=== PATIENT | female | born 1970 | race Caucasian/White ===

== ENCOUNTER 2019-07-16 14:36 | Outpatient (RCR) | payer OTHER, SELFPAY | END 2019-07-28 23:00 | disposition home or self-care (01) | LOC: SPT 14:36 | PROVIDERS: Family Provider Student in an Organized Health Care Education/Training Program; Visit Provider Orthopaedic Surgery | DX: M25.522 Pain in left elbow (principal) | CPT/HCPCS: 97545 ==

== ENCOUNTER 2019-07-18 13:07 | Outpatient (RCR) | payer OTHER, SELFPAY | END 2019-07-18 23:00 | disposition home or self-care (01) | LOC: SPT 13:07 | PROVIDERS: Family Provider Student in an Organized Health Care Education/Training Program; PCP Family Medicine; Visit Provider Orthopaedic Surgery | DX: M25.522 Pain in left elbow (principal) ==

== ENCOUNTER 2025-03-11 07:50 | Day surgery (SDC) | payer BC, MEDICAID, SELFPAY ==
[2025-03-11] VITALS (15 sets, daily range): BP systolic 104–159; BP diastolic 65–91; PULSE 75–93; RESP 12–18; TEMP 36.1–36.3; O2SAT 92–99; BMI 24.5
--- NOTE | 2025-03-11 08:12 | ANES.PREANE2 ---
Pre-Anesthetic Assessment Height/Weight: Height 5 ft 1 in Preop Diagnosis: Rotator cuff tear Operation Date: 03/11/25 09:30 Proposed Procedures p Rotator Cuff Repair - Open(Left) - Zach Delaney MD Was Beta Loretta taken within 24 hours: N/A Was Clonidine taken within 24 hours: N/A Social Tobacco and No alcohol Exam alert, oriented x 3, clear to auscultation bilaterally and regular rate & rhythm Airway Submandibular: within normal limits Cervical ROM: within normal limits Mallampati: Class III Comments: Comments: Edentulous Anesthetic Plan ASA status: 2 Anesthesia: General Other: No prior issues with anesthesia NPO since yesterday evening History of hypertension on diltiazem Patient brought in labs from outside facility that were recently performed Electrolytes stable, hemoglobin 13 EKG sinus rhythm Plan for GETA with preop nerve block Medications/Allergies Home Medications ?Medication ?Instructions ?Recorded ?Confirmed ?Last Taken ?Type baclofen 10 mg tablet 10 mg PO TID 08/28/19 03/10/25 03/10/25 History clonazepam 0.5 mg tablet 0.5 mg PO DAILY 08/28/19 03/10/25 03/10/25 History diltiazem HCl 120 mg 120 mg PO BEDTIME 08/28/19 03/11/25 03/10/25 History capsule,extended release 12 hr bupropion HCl 150 mg tablet,12 hr 150 mg PO BID 08/03/20 03/10/25 03/10/25 History sustained-release (Wellbutrin SR) estradiol 1 mg tablet 1 mg PO DAILY 08/03/20 03/10/25 03/10/25 History medroxyprogesterone 2.5 mg tablet 2.5 mg PO DAILY 08/03/20 03/10/25 03/10/25 History meloxicam 15 mg tablet 15 mg PO DAILY 08/03/20 03/10/25 03/10/25 History hydrocodone 7.5 mg-acetaminophen 1 tab PO BID PRN Pain 03/11/25 03/11/25 03/10/25 History 325 mg tablet Allergies Allergy/AdvReac Type Severity Reaction Status Date / Time gabapentin AdvReac Intermediate ADR-Nightma Verified 03/10/25 16:08 [facility] Anesthesia Social History Smoking and tobacco/nicotine status: current every day tobacco/nicotine user Alcohol intake: never Substance/Drug Use: never
--- NOTE | 2025-03-11 08:44 | W.PM.OPSUD ---
Surgery/Procedure H&P Update DATE OF PROCEDURE: March 11, 2025 DATE H&P PERFORMED: 02/09/25 CHANGES TO PREVIOUS DOCUMENTATION: No interval change in health status since the original H&P March 11, 2025 PREOP DIAGNOSIS: Rotator cuff tear PRIMARY INDICATION FOR PROCEDURE: Internal derangement left shoulder PLANNED PROCEDURE: Operation Date: 03/11/25 09:30 Proposed Procedures p Rotator Cuff Repair - Open(Left) - Zach Delaney MD
--- NOTE | 2025-03-11 08:56 | ANES.PROC ---
Anesthesia Procedures Procedure/Date: 03/11/25 Left interscalene nerve block for postoperative pain control Nerve Block ^: Nerve Block 1: Main Anesthesia: other (100 mcg of fentanyl and 2 mg Versed) Time Out Performed: Yes Consent: requested by attending/covering physician and from patient Laterality: Left Nerve block location: interscalene Anesthesia monitors applied: pulse oximetry, EKG, BP cuff and oxygen Nerve block position: supine Anesthetic Used: ropivicaine 0.5% Amount of anesthesia used (mL): 30 Ultrasound used to: recognize landmarks Nerve Stimulator Used?: Yes Interscalene/Femoral BLK: other needle (pjunk 4inch) Injection: neg aspiration of heme Patient Tolerated Procedure: well Complications: none Additional Comments: decadron 4mg added to block
[2025-03-11] MEDS: ceFAZolin 2,000 mg SDV 2000 MG IVP (09:10)
--- NOTE | 2025-03-11 10:21 | PM.OP ---
Operative Report Date of procedure: March 11, 2025 Surgeon: Zach Delaney MD Procedure: Preoperative diagnosis: Internal derangement of the left shoulder with rotator cuff tear Postoperative diagnosis: Same with grade III chondromalacia of humeral head, degenerative tearing of the anterior and superior labrum. Torn rotator cuff. Impingement of the acromion. Significant adhesions in the subacromial space Procedure: Diagnostic left shoulder arthroscopy with debridement of labrum and chondroplasty humeral head. Mini open acromioplasty. Lysis of adhesions. Rotator cuff repair Surgeon: Zach Delaney MD Power[employer] Supervisor: Danii Reyna, [employer] Member's assistance was necessary for positioning the patient, assistance during the procedure, wound closure, placement of abduction pillow sling and transported the patient to the PACU Anesthesia: General With preoperative scalene block EBL: 20 cc Indications: Arianna is a 54-year-old white female was seen in the orthopedic clinics for debilitating left shoulder pain. She subsequently had an MRI of the shoulder demonstrating degenerative changes of the rotator cuff of the supraspinatus tendon. Also degenerative change of the labrum. After failing all conservative measures patient was offered a diagnostic shoulder arthroscopy with all indicated procedures. Mini open acromioplasty and rotator cuff were also discussed with her. All risk benefits treatment alternatives were discussed with patient was agreeable to proceed with surgical intervention. Procedure: After obtaining consent patient had scalene block administered in preop holding area. Patient then taken to the operating room placed in the upper table supine position general anesthetic administered. Once good anesthesia was achieved patient was placed up in the beachchair position and padded out appropriately and secured to the bed. Left shoulder and arm were prepped and draped usual fashion. After surgical timeout standard posterior portal was made with #11 blade. Camera cannula placed within the glenohumeral joint line posteriorly. Anterior working portal was also made just inferior to the acromion on the anterior aspect the glenohumeral joint line. Evaluation in the area found there was quite scarred and white tight. There was degenerative tearing of the anterior labrum and superior labrum this debrided down to stable cartilaginous base mechanical shaver. Large area of grade III chondromalacia was identified in the central portion of the humeral head with its articulating surface to the glenoid. Glenoid was in good repair. Area was debrided with mechanical shaver down to stable cartilaginous base. Large hole in the rotator cuff just posterior to the biceps hiatus was identified also and this was slightly debrided. At this point arthroscopy was discontinued. Anterior lateral incision was made through the previous incision off the left shoulder acromion. Sharp dissection taken on down to subcutaneous tissue electrocautery was used for hemostasis. Deltoid was removed from the anterior acromion with electrocautery. Once down in the subacromial bursa thickened scarred bursa was encountered and cautery was necessary for cutting this away from the undersurface of the acromion and dissecting it out of the shoulder. This identified all the way around to the distal end of the clavicle also. Once through the bursa and this debrided degenerative tear of the rotator cuff is identified at the anterior corner of the acromion. Prior to repair of the rotator cuff and acromioplasty was done with a microsagittal saw to allow for more room and to remove the bulbous anterior edge of the acromion. At this time rotator cuff edges were freshened with a #15 blade. A single 2.9 mm suture anchor implant was placed with double-armed suture. Horizontal mattress sutures used repair of the rotator cuff. Subsequently the deltoid with 0 Vicryl [id number] sutures. Subcutaneous was reapproximated with 2-0 Vicryl interrupted sutures skin was closed skin sutures. All wounds are clean and dry dressed with Xeroform gauze sterile gauze dressing and adhesive dressing. Patient placed abduction pillow and sling awakened transferred to cover room stable to condition
--- NOTE | 2025-03-11 12:05 | ANE.PACU2 ---
Inpatient post-anesthesia follow up: Airway intact: Yes Vital signs: Temperature 97.1 F Pulse Rate 83 Respiratory Rate 16 Blood Pressure 159/88 Pulse Oximetry 94 Oxygen Delivery Me thod Room Air Oxygen Flow Rate 6 Fraction of Inspir ed Oxygen Hydration adequate: Yes Nausea and vomiting: No Pain level: 1 Mental status: Baseline
== END 2025-03-11 12:05 | disposition home or self-care (01) ==
PROVIDERS: PCP Family Medicine; Visit Provider Orthopaedic Surgery
PROC: (CPT 23412; principal; 2025-03-11 09:10)
PROC: (CPT 29805; 2025-03-11 09:10)
DX: M24.812 Other specific joint derangements of left shoulder, not elsewhere classified (principal); M75.102 Unspecified rotator cuff tear or rupture of left shoulder, not specified as traumatic; M94.212 Chondromalacia, left shoulder; S43.432A Superior glenoid labrum lesion of left shoulder, initial encounter; X58.XXXA Exposure to other specified factors, initial encounter; M75.42 Impingement syndrome of left shoulder; I10 Essential (primary) hypertension; F17.200 Nicotine dependence, unspecified, uncomplicated
CPT/HCPCS: 23412; 64415; 23130; C1713; J0690; J1100; J2405; J2704; J3010; J3490; J7030; J9999